=== PATIENT | female | born 1955 | race African-American/Black ===

== ENCOUNTER 2020-01-26 16:58 | Inpatient (IN) | payer BC, OTHER ==
[2020-01-26] MEDS ORDERED: NA CHLORIDE 0.9% 3,000 ML ONE (17:42)
[2020-01-26 17:56] LABS: Absolute Lymphocytes (CBC) 1.2 K/uL (0.7-4.9); Basophils % 0.3 % (0-1.3); Hematocrit 41.2 % (36.0-45.0); MPV 10.2 fL (7.6-11.3); RBC Red Blood Cell Count 4.45 M/uL (3.86-4.86)
--- NOTE | 2020-01-26 17:56 | RAD REPORT ---
EXAM DESCRIPTION: RAD - Chest Single View - 01/26/2020 5:51 pm CLINICAL HISTORY: MD discretion Chest pain. COMPARISON: No comparisons FINDINGS: Portable technique limits examination quality. The lungs are grossly clear. The heart is normal in size. No displaced fractures. IMPRESSION: No acute intrathoracic process suspected.
[2020-01-26 17:57] LABS: Protime INR 1.38
[2020-01-26] MEDS ORDERED: ONDANSETRON 4 MG/2 ML VIAL ONE (18:07)
[2020-01-26] MEDS ORDERED: FAMOTIDINE 20 MG/2 ML VIAL IV ONE (18:08)
[2020-01-26 18:11] LABS: ALT/SGPT 21 U/L (12-78); AST/SGOT 17 U/L (15-37); Alkaline Phosphatase 57 U/L (45-117); Amylase Level 15 U/L (25-115); BUN Blood Urea Nitrogen 17 mg/dL (7-18); Bicarbonate 31 mmol/L (21-32); Bilirubin Direct 0.4 mg/dL (0-0.2); Bilirubin Total 0.8 mg/dL (0.2-1.0); CKMB Creatine Kinase MB < 1.0 ng/mL (0.3-3.6); Creatine Phosphokinase 42 U/L (26-192); Glucose Level 138 mg/dL (74-106); Lipase 37 U/L (73-393); Potassium 3.4 mmol/L (3.5-5.1); Protein, Total 8.7 g/dL (6.4-8.2); Sodium Level 136 mmol/L (136-145); Troponin (Emerg Dept Use Only) < 0.02 ng/mL (0.0-0.045)
--- NOTE | 2020-01-26 18:21 | RAD REPORT ---
EXAM DESCRIPTION: US - Abdomen Exam Limited - 01/26/2020 6:14 pm CLINICAL HISTORY: epigastric/RUQ abdomen pain COMPARISON: No comparisons FINDINGS: The gallbladder demonstrates distention. Small echogenic foci in the gallbladder neck seen questionable for small stones. Gallbladder wall is mildly thickened and trace pericholecystic fluid is seen. The common bile duct is normal measuring 4 mm. The liver demonstrates no findings of intrahepatic biliary dilatation. IMPRESSION: Gallbladder distension with trace pericholecystic fluid and mild gallbladder wall thicke odalis. It is difficult to discern with confidence the presence gallstones although questionable tiny c alculi may be present in the region of the gallbladder neck. Suggest correlation clinically for the possibility of early acute cholecystitis.
--- NOTE | 2020-01-26 18:37 | RAD REPORT ---
EXAM DESCRIPTION: CT - Chest Abdomen Pelvis W Cont - 01/26/2020 6:27 pm CLINICAL HISTORY: Chest and abdomen pain. nausea/vomiting/diarrhea;Fever COMPARISON: No comparisons TECHNIQUE: Approximately 100 mL nonionic IV contrast was administered to the patient. All CT scans are performed using dose optimization technique as appropriate and may include automated exposure control or mA/KV adjustment according to patient size. FINDINGS: The lungs are clear.No pleural or pericardial effusion.No intrathoracic adenopathy. Diffuse fatty liver is present. The pancreas, adrenal glands and kidneys are within normal limits. Be nign right renal cysts are present. There is significant inflammation in the right upper quadrant surrounding the gallbladder in the antr um of the stomach/ duodenal bulb. No bowel obstruction, free air, free fluid or abscess. Normal appendix. Sigmoid diverticulosis coli w ithout diverticulitis. No pathologic lymphadenopathy in the abdomen or pelvis. Lumbosacral degenerative changes are present. IMPRESSION: Significant inflammatory changes are present in the right upper quadrant surrounding a m ildly distended gallbladder.Primary consideration would be acute cholecystitis. Inflammatory changes are also seen in the gastric antrum and duodenal bulb, favored to be secondary to gallbladder inflamm ation, however it is difficult to exclude primary inflammatory process in the gastric antrum resultin g in secondary inflammation of the gallbladder. Upper endoscopy may be of value for further assessmen t.
[2020-01-26] MEDS ORDERED: PIPER/TAZO/NS 3.375gm 3.375 GM/100 ML BAG ONE (18:50)
[2020-01-26 19:28] LABS: Blood Morphology Comment NOT SEEN (NOT SEEN); Platelet Estimate ADEQ
--- NOTE | 2020-01-26 19:35 | ER ---
Nurse's Notes [facility] Name: Sun Stanford Age: 64 yrs Sex: Female : 1955 Arrival Date: 01/26/2020 Time: 16:59 Bed 18 Private MD: Diagnosis: Other sepsis;Diarrhea, unspecified;Nausea and vomiting;Upper abdominal pain, unspecified Presentation: 01/25 17:13 Chief complaint: Patient states: abd pain, back pain, and N/V/D that began 4-5 days aa5 ago. Coronavirus screen: The patient has NOT traveled to a country currently being monitored by the [facility] within the last 14 days. Ebola Screen: Patient negative for fever greater than or equal to 101.5 degrees Fahrenheit, and additional compatible Ebola Virus Disease symptoms. Initial Sepsis Screen: Does the patient meet any 2 criteria? HR > 90 bpm. Does the patient have a suspected source of infection? Yes: Other: vomiting/diarrhea. Risk Assessment: Do you want to hurt yourself or someone else? Patient reports no desire to harm self or others. 17:13 Method Of Arrival: Wheelchair aa5 17:13 Acuity: CORINA 2 aa5 19:00 Onset of symptoms was January 21, 2020. rr5 Historical: - Allergies: 17:17 No Known Allergies; aa5 - PMHx: 17:17 None; aa5 - PSHx: 17:17 ; aa5 - Immunization history:: Flu vaccine is not up to date. - Social history:: Smoking status: Patient denies any tobacco usage or history of. Screenin:30 Abuse screen: Denies threats or abuse. Denies injuries from another. Nutritional aj1 screening: No deficits noted. Tuberculosis screening: No symptoms or risk factors identified. 19:15 Fall Risk IV access (20 points). Total Ayala Fall Scale indicates No Risk (0-24 pts). rr5 Assessment: 17:30 General: Appears in no apparent distress. comfortable, Behavior is calm, cooperative, aj1 appropriate for age. Pain: Denies pain. Neuro: Level of Consciousness is awake, alert, obeys commands, Oriented to person, place, time, situation. Cardiovascular: Patient's skin is warm and dry. Respiratory: Airway is patent Respiratory effort is even, unlabored, Respiratory pattern is regular, symmetrical. GI: Abdomen is non-distended, Bowel sounds present X 4 quads. Abd is soft and non tender X 4 quads. Reports diarrhea, nausea, vomiting. : No signs and/or symptoms were reported regarding the genitourinary system. EENT: No signs and/or symptoms were reported regarding the EENT system. Derm: No signs and/or symptoms reported regarding the dermatologic system. Skin is pink, warm \T\ dry. normal. 17:30 Musculoskeletal: No signs and/or symptoms reported regarding the musculoskeletal aj1 system. Circulation, motion, and sensation intact. 18:27 Reassessment: Notified provider that patient does not have antibiotics ordered at this aj1 time, no order received. 19:04 Reassessment: Patient appears in no apparent distress at this time. Patient and/or aj1 family updated on plan of care and expected duration. Pain level reassessed. Patient is alert, oriented x 3, equal unlabored respirations, skin warm/dry/pink. Patient states that she is feeling better since we started giving her IV fluids. 19:15 General: Appears in no apparent distress. comfortable, Behavior is calm, cooperative, rr5 appropriate for age. Pain: Complains of pain in right upper quadrant and left upper quadrant Pain does not radiate. Pain currently is 6 out of 10 on a pain scale. Quality of pain is described as aching, Pain began gradually, Is intermittent. Neuro: Level of Consciousness is awake, alert, obeys commands, Oriented to person, place, time, situation. Cardiovascular: Capillary refill < 3 seconds Patient's skin is warm and dry. Respiratory: Airway is patent Respiratory effort is even, unlabored, Respiratory pattern is regular, symmetrical. GI: Abdomen is round non-distended, Reports diarrhea, nausea, vomiting. : No signs and/or symptoms were reported regarding the genitourinary system. EENT: No signs and/or symptoms were reported regarding the EENT system. Derm: Skin is intact, is healthy with good turgor, Skin is pink, warm \T\ dry. Musculoskeletal: Circulation, motion, and sensation intact. Capillary refill < 3 seconds. 20:15 Reassessment: Patient appears in no apparent distress at this time. Patient is alert, rr5 oriented x 3, equal unlabored respirations, skin warm/dry/pink. hospitalist at bedside. patient informed for the admission. Patient states symptoms have improved. 21:30 Reassessment: Patient appears in no apparent distress at this time. No changes from rr5 previously documented assessment. Patient and/or family updated on plan of care and expected duration. Pain level reassessed. Patient is alert, oriented x 3, equal unlabored respirations, skin warm/dry/pink. awaiting for room assignment. 21:50 Reassessment: Patient appears in no apparent distress at this time. complaints of sever rr5 abdominal pain pain score 10/10. ED provider aware with order made and carried out. 22:32 Reassessment: Patient appears in no apparent distress at this time. Patient is alert, rr5 oriented x 3, equal unlabored respirations, skin warm/dry/pink. Patient states symptoms have improved. Pain: Pain currently is 7 out of 10 on a pain scale. Vital Signs: 17:13 BP 95 / 50; Pulse 144; Resp 16 S; Temp 98.4(O); Pulse Ox 98% on R/A; Weight 112.04 kg aa5 (R); Height 5 ft. 3 in. (160.02 cm) (R); Pain 7/10; 17:56 BP 109 / 57; Pulse 135; Resp 32; Pulse Ox 97% on R/A; aj1 18:14 BP 117 / 77; Pulse 127; Resp 32; Pulse Ox 98% on R/A; aj1 19:03 BP 130 / 68; Pulse 117; Resp 24; Pulse Ox 96% on R/A; aj1 20:25 BP 122 / 64; Pulse 108; Resp 22; Temp 98.3; Pulse Ox 99% ; rr5 21:50 BP 128 / 57; Pulse 110; Resp 23; Temp 98.3; Pulse Ox 97% ; Pain 10/10; rr5 22:33 BP 110 / 75; Pulse 111; Resp 22; Pulse Ox 99% ; Pain 7/10; rr5 17:13 Body Mass Index 43.75 (112.04 kg, 160.02 cm) aa5 ED Course: 16:59 Patient arrived in ED. ag5 17:13 Arm band placed on. aa5 17:16 Triage completed. aa5 17:23 Sidney Ramirez [facility]. cp 17:23 Sidney Duenas MD is Attending Physician. cp 17:25 Jennifer Boyd, RN is Primary Nurse. aj1 17:30 Patient has correct armband on for positive identification. Bed in low position. Call aj1 light in reach. Side rails up X 1. 17:30 No provider procedures requiring assistance completed. aj1 17:35 Initial lab(s) drawn, by me, sent to lab. First set of blood cultures drawn by me. aj1 Inserted saline lock: 20 gauge in right antecubital area, using aseptic technique. Blood collected. 17:37 Second set of blood cultures drawn by lab staff. aj1 19:33 Ahmet Locke MD is Hospitalizing Provider. cp 22:01 Patient admitted, IV remains in place. intact, No redness/swelling at site. rr5 Administered Medications: 17:46 Drug: NS 0.9% (30 ml/kg) 30 ml/kg Route: IV; Rate: bolus; Site: right antecubital; aj1 22:00 Follow up: Response: No adverse reaction; IV Status: Completed infusion; IV Intake: rr5 3360ml 18:14 Drug: Zofran (Ondansetron) 4 mg Route: IVP; Site: right antecubital; aj1 19:15 Follow up: Response: No adverse reaction rr5 18:14 Drug: Pepcid 20 mg Route: IVP; Site: right antecubital; aj1 20:20 Follow up: Response: No adverse reaction rr5 19:18 Drug: Zosyn 3.375 grams Route: IVPB; Infused Over: 60 mins; Site: right antecubital; aj1 20:20 Follow up: Response: No adverse reaction; IV Status: Completed infusion; IV Intake: rr5 100ml 21:50 Drug: fentaNYL (PF) 25 mcg {Note: rass 0.} Route: IVP; Site: right antecubital; rr5 22:31 Follow up: Response: No adverse reaction; Pain is decreased; RASS: Alert and Calm (0) rr5 22:31 Not Given (Other Intervention Used): fentaNYL (PF) 25 mcg IVP once; RASS on ADMIN: rr5 Combtv4, Very Agttd3, Agttd2, Rstlss1, AlertClm0, Drwsy-1, Lt Sdtn-2, Mod Sdtn-3, Dp Sdtn-4, UnArsble-5 Point of Care Testing: Blood Glucose: 17:37 Blood Glucose: 138 mg/dL; iw Ranges: Intake: 20:20 IV: 100ml; Total: 100ml. rr5 22:00 IV: 3360ml; Total: 3460ml. rr5 Outcome: 19:34 Decision to Hospitalize by Provider. cp 22:31 Admitted to Tele accompanied by tech, via stretcher, room 419, with chart, Report rr5 called to [place] 22:31 Condition: stable 22:31 Instructed on the need for admit. 22:33 Patient left the ED. rr5 Signatures: Jennifer Boyd, RN RN aj1 Amada Lechuga RN RN iw Harleen Hopkins RN RN aa5 Sidney Ramirez PA PA cp Roque, Raymond, RN RN rr5 Jose Bustamante ag5
--- NOTE | 2020-01-26 19:36 | EDPHYS ---
Physician Documentation [facility] Name: Sun Stanford Age: 64 yrs Sex: Female : 1955 Arrival Date: 01/26/2020 Time: 16:59 Bed 18 Private MD: ED Physician Sidney Duenas HPI: 01/25 17:35 This 64 yrs old Black Female presents to ER via Wheelchair with complaints of cp Nausea/Vomiting/Diarrhea. 17:35 The patient presents to the emergency department with nausea, that is moderate, cp vomiting, that is continuous, diarrhea, that is continuous. Onset: The symptoms/episode began/occurred 4 day(s) ago. Possible causes: unknown. Associated signs and symptoms: Pertinent positives: abdominal pain, fever, Pertinent negatives: constipation, dysuria, GI bleeding. Severity of symptoms: in the emergency department the symptoms are unchanged despite home interventions. Historical: - Allergies: 17:17 No Known Allergies; aa5 - PMHx: 17:17 None; aa5 - PSHx: 17:17 ; aa5 - Immunization history:: Flu vaccine is not up to date. - Social history:: Smoking status: Patient denies any tobacco usage or history of. ROS: 17:40 Constitutional: Positive for poor PO intake, Negative for body aches, fever. cp 17:40 Eyes: Negative for injury, pain, redness, and discharge. cp 17:40 ENT: Negative for drainage from ear(s), ear pain, sore throat, difficulty swallowing, difficulty handling secretions. 17:40 Cardiovascular: Negative for chest pain, palpitations. 17:40 Respiratory: Positive for cough, Negative for shortness of breath, wheezing. 17:40 Abdomen/GI: Positive for abdominal pain, nausea, vomiting, and diarrhea, anorexia, Negative for constipation, black/tarry stool, rectal bleeding. 17:40 Back: Positive for radiated pain, of the mid back area. 17:40 : Negative for urinary symptoms. 17:40 Skin: Negative for rash. 17:40 Neuro: Negative for altered mental status, dizziness, headache, syncope, weakness. 17:40 All other systems are negative. Exam: 17:35 ECG was reviewed by the Attending Physician. cp 17:45 Constitutional: The patient appears in no acute distress, alert, awake, cp non-diaphoretic, well developed, well nourished, obviously ill, uncomfortable. 17:45 Head/Face: Normocephalic, atraumatic. cp 17:45 Eyes: Periorbital structures: appear normal, Pupils: equal, round, and reactive to light and accomodation, Extraocular movements: intact throughout, Conjunctiva: normal, no exudate, no injection, Sclera: no appreciated abnormality, Lids and lashes: appear normal, bilaterally. 17:45 ENT: External ear(s): are unremarkable, Ear canal(s): are normal, clear, TM's: bulging, is not appreciated, bilaterally, dullness, bilaterally, erythema, is not appreciated, bilaterally, Nose: is normal, Mouth: Lips: moist, Oral mucosa: pink and intact, moist, Posterior pharynx: is normal, airway is patent, no erythema, no exudate. 17:45 Neck: ROM/movement: is normal, is supple, without pain, no range of motions limitations, no meningismus, no nuchal rigidity. 17:45 Chest/axilla: Inspection: normal, Palpation: is normal, no crepitus, no tenderness. 17:45 Cardiovascular: Rate: tachycardic, Rhythm: regular, Edema: is not appreciated, JVD: is not appreciated. 17:45 Respiratory: the patient does not display signs of respiratory distress, Respirations: normal, no use of accessory muscles, no retractions, labored breathing, is not present, Breath sounds: are clear throughout, no decreased breath sounds, no stridor, no wheezing. 17:45 Abdomen/GI: Inspection: abdomen appears normal, Bowel sounds: active, all quadrants, Palpation: soft, in all quadrants, moderate abdominal tenderness, in the epigastric area and right upper quadrant, rebound tenderness, is not appreciated, voluntary guarding, is elicited in the epigastric area and right upper quadrant. 17:45 Back: pain, that is moderate, of the mid back area, ROM is painful. 17:45 Skin: no rash present. 17:45 Neuro: Orientation: to person, place \T\ time. Mentation: is normal, Cerebellar function: is grossly normal, Motor: moves all fours, general weakness without focal deficits, Sensation: is normal. Vital Signs: 17:13 BP 95 / 50; Pulse 144; Resp 16 S; Temp 98.4(O); Pulse Ox 98% on R/A; Weight 112.04 kg aa5 (R); Height 5 ft. 3 in. (160.02 cm) (R); Pain 7/10; 17:56 BP 109 / 57; Pulse 135; Resp 32; Pulse Ox 97% on R/A; aj1 18:14 BP 117 / 77; Pulse 127; Resp 32; Pulse Ox 98% on R/A; aj1 19:03 BP 130 / 68; Pulse 117; Resp 24; Pulse Ox 96% on R/A; aj1 20:25 BP 122 / 64; Pulse 108; Resp 22; Temp 98.3; Pulse Ox 99% ; rr5 21:50 BP 128 / 57; Pulse 110; Resp 23; Temp 98.3; Pulse Ox 97% ; Pain 10/10; rr5 22:33 BP 110 / 75; Pulse 111; Resp 22; Pulse Ox 99% ; Pain 7/10; rr5 17:13 Body Mass Index 43.75 (112.04 kg, 160.02 cm) aa5 MDM: 17:23 Patient medically screened. deepthi 18:00 Differential diagnosis: gastritis, cholecystitis, pancreatitis, appendicitis, cp diverticulitis, viral gastroenteritis, gastroenteritis. 19:20 Data reviewed: vital signs, nurses notes, lab test result(s), EKG, radiologic studies, cp CT scan, plain films, I have discussed the patient's presentation/case with the attending Emergency Department Physician; and as a result, I will admit patient. 19:20 Counseling: I had a detailed discussion with the patient and/or guardian regarding: the historical points, exam findings, and any diagnostic results supporting the discharge/admit diagnosis, lab results, radiology results, the need for further work-up and treatment in the hospital. 19:30 Physician consultation: Vickey Umana MD was contacted at 19:20, regarding consult, patient's condition, would like admission per Dr. Ahmet Locke MD would like further tests performed, HIDA scan. 19:35 Physician consultation: Ahmet Locke MD was called at 19:32, was contacted at 19:32, regarding admission, to the telemetry unit. patient's condition. 21:45 Post IV fluid administration reassessment for Sepsis: Focused Assessment performed: cp January 26, 2020 at 21:51 Heart: Regular rate/rhythm noted. Tachycardia noted. Lungs: Noted to be clear bilaterally. Current vital signs reviewed: Yes. 01/25 17:32 Order name: Amylase, Serum [facility] 01/25 17:32 Order name: Basic Metabolic Panel [facility] 01/25 17:32 Order name: Blood Culture Adult (2) [facility] 01/25 17:32 Order name: CBC with Diff 01/25 17:32 Order name: Ckmb 01/25 17:32 Order name: CPK 01/25 17:32 Order name: Lactate 01/25 17:32 Order name: LFT's 01/25 17:32 Order name: Lipase 01/25 17:32 Order name: Procalcitonin [facility] 01/25 17:32 Order name: Protime (+inr) 01/25 17:32 Order name: Ptt, Activated 01/25 17:32 Order name: Troponin (emerg Dept Use Only) [facility] 01/25 17:32 Order name: Urine Microscopic Only [facility] 01/25 17:49 Order name: Glucose, Ancillary Testing; Complete Time: 17:49 EDMS 01/25 17:49 Order name: Occult Blood cp 01/25 17:49 Order name: Stool Culture 01/25 17:49 Order name: CDIFF cp 01/25 18:05 Order name: CBC with Automated Diff; Complete Time: 19:31 EDMS 01/25 18:23 Interpretation: Normal except: WBC 30.6; RDW 16.1; GRISELDA% 87.3; LYM% 4.0; MNA 2.6; NEUT A cp 26.7. 01/25 18:05 Order name: Protime (+INR); Complete Time: 18:05 EDMS 01/25 18:24 Interpretation: Abnormal: PT 16.1. cp 01/25 18:05 Order name: PTT, Activated Partial Thromb; Complete Time: 18:05 EDMS 01/25 18:11 Order name: Basic Metabolic Panel; Complete Time: 18:22 EDMS 01/25 18:22 Interpretation: Normal except: K 3.4; CL 97; GLUC 138; GFR 50. cp 01/25 18:12 Order name: Liver (Hepatic) Function; Complete Time: 18:22 EDMS 01/25 18:22 Interpretation: Normal except: BILID 0.4; TP 8.7; ALB 3.0; GLOB 5.7; A/G 0.5. cp 01/25 18:12 Order name: Creatine Phosphokinase; Complete Time: 18:22 EDMS 01/25 18:12 Order name: CKMB Creatine Kinase MB; Complete Time: 18:22 EDMS 01/25 18:12 Order name: Troponin (Emerg Dept Use Only); Complete Time: 18:22 EDVA 01/25 18:12 Order name: Amylase Level; Complete Time: 18:22 EDMS 01/25 18:22 Interpretation: Reviewed. cp 01/25 18:12 Order name: Lipase; Complete Time: 18:22 EDMS 01/25 18:23 Interpretation: Reviewed. cp 01/25 18:12 Order name: Lactate; Complete Time: 18:22 EDMS 01/25 18:23 Interpretation: Abnormal: LAC 2.3. cp 01/25 18:34 Order name: Procalcitonin; Complete Time: 18:37 [facility] 01/25 18:37 Interpretation: Abnormal: Procalcitonin 3.32. 01/25 17:32 Order name: Chest Single View XRAY [facility] 01/25 17:32 Order name: Accucheck; Complete Time: 17:37 [facility] 01/25 17:32 Order name: Cardiac monitoring; Complete Time: 17:33 [facility] 01/25 17:32 Order name: EKG - Nurse/Tech; Complete Time: 17:33 [facility] 01/25 17:32 Order name: IV Saline Lock - Large Bore; Complete Time: 17:37 [facility] 01/25 17:32 Order name: Labs collected and sent; Complete Time: 17:37 [facility] 01/25 17:32 Order name: O2 Per Protocol; Complete Time: 17:37 [facility] 01/25 17:32 Order name: O2 Sat Monitoring; Complete Time: 17:37 [facility] 01/25 17:32 Order name: Urine Dipstick-Ancillary (obtain specimen); Complete Time: 21:23 [facility] 01/25 17:49 Order name: US Abdomen Limited cp 01/25 18:05 Order name: RAD; Complete Time: 18:05 [facility] 01/25 18:06 Order name: CT Chest, Abdomen, Pelvis - W/Contrast 01/25 18:30 Order name: US; Complete Time: 18:37 EDMS 01/25 18:44 Order name: CT; Complete Time: 18:54 EDMS 01/25 18:56 Interpretation: Report reviewed. cp 01/25 19:20 Order name: Ova And Parasites cp 01/25 19:29 Order name: Manual Differential; Complete Time: 19:31 EDMS 01/25 19:33 Order name: Urine Dipstick--Ancillary (enter results) ar5 01/25 19:54 Order name: Urine Microscopic Only; Complete Time: 19:57 EDMS 01/25 19:57 Interpretation: Normal except: UBACT >50; SQEPI 5-10. cp 01/25 19:56 Order name: Urine Dipstick-Ancillary; Complete Time: 19:57 EDMS 01/25 20:38 Order name: Lactate Sepsis 2 HR Follow-up EDMS 01/25 21:53 Order name: Thyroid Stimulating Hormone EDMS EC:35 Rate is 142 beats/min. Rhythm is regular. AR interval is normal. QRS interval is cp normal. QT interval is normal. T waves are Inverted in lead III. Interpreted by me. Reviewed by me. Administered Medications: 17:46 Drug: NS 0.9% (30 ml/kg) 30 ml/kg Route: IV; Rate: bolus; Site: right antecubital; aj1 22:00 Follow up: Response: No adverse reaction; IV Status: Completed infusion; IV Intake: rr5 3360ml 18:14 Drug: Zofran (Ondansetron) 4 mg Route: IVP; Site: right antecubital; aj1 19:15 Follow up: Response: No adverse reaction rr5 18:14 Drug: Pepcid 20 mg Route: IVP; Site: right antecubital; aj1 20:20 Follow up: Response: No adverse reaction rr5 19:18 Drug: Zosyn 3.375 grams Route: IVPB; Infused Over: 60 mins; Site: right antecubital; aj1 20:20 Follow up: Response: No adverse reaction; IV Status: Completed infusion; IV Intake: rr5 100ml 21:50 Drug: fentaNYL (PF) 25 mcg {Note: rass 0.} Route: IVP; Site: right antecubital; rr5 22:31 Follow up: Response: No adverse reaction; Pain is decreased; RASS: Alert and Calm (0) rr5 22:31 Not Given (Other Intervention Used): fentaNYL (PF) 25 mcg IVP once; RASS on ADMIN: rr5 Combtv4, Very Agttd3, Agttd2, Rstlss1, AlertClm0, Drwsy-1, Lt Sdtn-2, Mod Sdtn-3, Dp Sdtn-4, UnArsble-5 Point of Care Testing: Blood Glucose: 17:37 Blood Glucose: 138 mg/dL; iw Ranges: Critical Glucose Levels:Adult <50 mg/dl or >400 mg/dl <40 mg/dl or >180 mg/dl Disposition: 01/26/20 19:34 Hospitalization ordered by Ahmet Locke for Inpatient Admission. Preliminary diagnosis are Other sepsis, Diarrhea, unspecified, Nausea and vomiting, Upper abdominal pain, unspecified. - Bed requested for Telemetry/MedSurg (Inpatient). - Status is Inpatient Admission. rr5 - Condition is Stable. - Problem is new. - Symptoms have improved. Addendum: 01/29/2020 07:09 Co-signature as Attending Physician, Sidney Duenas MD I agree with the assessment and c ruiz plan of care. Signatures: Dispatcher [employer] EDJennifer Aparicio, JEREMIAH RN aj1 Sidney Duenas MD MD cha Calderon, Audri, RN RN aa5 Sidney Ramirez PA PA Sherry Hugo, RN RN cg Nickolas Aleman, RN RN rr5 Corrections: (The following items were deleted from the chart) 01/25 18:23 18:23 Normal except: WBC 30.6; RDW 16.1; GRISELDA% 87.3; LYM% 4.0. cp cp 18:23 18:23 Normal except: WBC 30.6; RDW 16.1; GRISELDA% 87.3; LYM% 4.0; MNA 2.6. cp cp 21:42 19:34 Hospitalization Ordered by Ahmet Locke MD for Inpatient Admission. Preliminary cg diagnosis is Other sepsis; Diarrhea, unspecified; Nausea and vomiting; Upper abdominal pain, unspecified. Bed requested for Telemetry/MedSurg (Inpatient). Status is Inpatient Admission. Condition is Stable. Problem is new. Symptoms have improved. cp 22:33 21:42 01/26/2020 19:34 Hospitalization Ordered by Ahmet Locke MD for Inpatient rr5 Admission. Preliminary diagnosis is Other sepsis; Diarrhea, unspecified; Nausea and vomiting; Upper abdominal pain, unspecified. Bed requested for Telemetry/MedSurg (Inpatient). Status is Inpatient Admission. Condition is Stable. Problem is new. Symptoms have improved. cg
[2020-01-26 19:53] LABS: Urine Bacteria >50 /HPF (<20); Urine Culture Reflex Order REFLEXED; Urine RBC <5 /HPF (NONE SEEN)
[2020-01-26 19:55] LABS: Urine Blood 2+ (NEG); Urine Glucose NEGATIVE (NEG); Urine Protein 3+ (NEG); Urine pH 5.5 (5.0-7.0)
[2020-01-26] MEDS ORDERED: MORPHINE 2 MG/ML SYR IV PRN (21:17)
[2020-01-26] MEDS ORDERED: ONDANSETRON 4 MG/2 ML VIAL IV PRN (21:17)
[2020-01-26] MEDS ORDERED: HYDRALAZINE HCL 20 MG/ML VIAL IV PRN (21:28)
[2020-01-26] MEDS ORDERED: FENTANYL CITR 100 MCG/2 ML ONE (21:47)
[2020-01-26] MEDS: D5.45NS W/KCL 20MEQ 1,000 ML IV SCH (23:18)
[2020-01-26] MEDS ORDERED: PIPERACIL/TAZO 3.375 GM VIAL IV ONE (23:50)
[2020-01-26] MEDS ORDERED: NA CHLORIDE 0.9% 100 ML ONE (23:59)
[2020-01-27] MEDS: METRONIDAZOLE 500mg IVPB 500 MG/100 ML BAG IV SCH ×3 (00:12→17:05)
[2020-01-27] MEDS: HEPARIN 5000 UNIT/ML 1 ML VIAL SQ SCH ×2 (00:13→09:00)
--- NOTE | 2020-01-27 00:59 | HP ---
Date of Admission: 01/26/2020 Presenting Complaint: Nausea, vomiting, diarrhea. History Of Present Illness: Ms. Sun Stanford is a 64-year-old with past medical history of hypothyr oidism, not adherent with her Synthroid, but presented because of 3-day history of nausea, vomiting w ith diarrhea, right upper abdominal quadrant pain, colicky and crampy. Diarrhea is nonbloody. On ar rival in the ED, she had an ultrasound of the upper quadrant done with findings of presumed gallbladd er distention and pericholecystic fluid. She was also noted to be mildly hypotensive and tachycardic with heart rate up to the 140s. Symptoms improved with IV fluid. She feels much better. Nausea se ems to have resolved. She feels hungry and would like to eat something. She has been admitted for f urther workup of presumed cholecystitis. She admit to a history of bronchitis 2 weeks ago, but she w as not treated with any antibiotics. Past Medical History: Hypothyroidism. Past Surgical History: . Allergies: NO KNOWN DRUG ALLERGIES. Home Medications: She takes Synthroid 25 mcg daily. Social History: She resides in the community with the family. No history of alcohol, tobacco, or il licit drug use. Family History: Noncontributory. Review of Systems: All systems reviewed x14 were negative except as mentioned above. Physical Examination: Vital Signs: Blood pressure on presentation was 95/50 with pulse of 144. Current vitals now blood p ressure of 130/68, pulse of 117, respiratory rate of 24, O2 saturation 96 on room air, is post 2 L of fluid with normal saline. General: Obese, middle-age female. HEENT: Head is atraumatic, normocephalic. Pupils equal, reactive to light. Extraocular motor movem ent intact. Neck: No JVD. No carotid bruit. Respiratory: Good air entry. No crepitation. Cardiovascular: S1, S2. Rate and rhythm regular. GI: Obese abdomen. Mild tenderness over the right upper quadrant. Bowel sounds positive. No supra pubic fullness or tenderness. Extremities: No pedal edema. No calf tenderness. Neuro: Patient is alert and oriented. Cranial nerves 2 through 12 grossly intact. Laboratory Data: EKG shows sinus tachy with mild left atrial dilatation, heart rate of 142 beats per minute. No ST-segment changes. CT of the abdomen and pelvis shows significant inflammatory changes in the right upper quadrant surrounding a mildly distended gallbladder, possible acute cholecystitis . Abdominal ultrasound consistent with similar findings. Chest x-ray shows no acute infiltrates. L ungs are grossly clear. Laboratory Data: Rest of labs, WBC 30.6 with 87% neutrophils, 3% bands, hemoglobin 13.5, platelet 33 8. INR 1.38, potassium 3.4, creatinine 1.3, glucose 138, AST, alkaline phosphatase normal. TSH pend ing. Procalcitonin 3.3, lipase of 37, amylase 15. Urinalysis shows greater than 50 bacteria, but ne gative leukocyte esterase. Urine total protein was 3+. C diff pending. Impression: 1.Acute cholecystitis. 2.Hypothyroidism. Plan: Admit to observation. We will start patient on empirical Zosyn as well as Flagyl. We will co nsult Surgery. Plan for HIDA scan in a.m. as per Surgery. I will obtain TSH, restart patient's Synt hroid. Family to bring full home med list. We will do subcutaneous heparin for DVT prophylaxis as p ossible, plan for surgery. CBC and BMP are monitored daily. We will continue to follow. Advanced d samantha, patient is a full code. We will replete potassium. Follow magnesium level. EO/MODL Voice ID: [id number]
[2020-01-27] MEDS ORDERED: NA CHLORIDE 0.9% 100 ML ONE (03:02)
[2020-01-27 05:16] LABS: Absolute Lymphocytes (CBC) 0.8 K/uL (0.7-4.9); Basophils % 0.2 % (0-1.3); Hematocrit 35.1 % (36.0-45.0); Lymphocytes % 4.2 % (15.3-44.8); MPV 10.3 fL (7.6-11.3); RBC Red Blood Cell Count 3.72 M/uL (3.86-4.86)
[2020-01-27] MEDS: PIPER/TAZO/NS 3.375gm 3.375 GM/100 ML BAG IVPB SCH ×4 (05:33→19:10)
[2020-01-27] MEDS: LEVOTHYROXINE SOD 0.025 MG TAB PO SCH (05:33)
[2020-01-27 05:37] LABS: Albumin 2.3 g/dL (3.4-5.0); Bilirubin Total 0.7 mg/dL (0.2-1.0); Potassium 3.4 mmol/L (3.5-5.1); Protein, Total 6.8 g/dL (6.4-8.2)
[2020-01-27] MEDS: FAMOTIDINE 20 MG TAB PO SCH ×2 (09:00→20:41)
--- NOTE | 2020-01-27 09:21 | EKG ---
Test Date: 2020-01-26 Test Time: 17:24:58 Filbert Grower: MADONNA MEASUREMENT RESULTS: Intervals: Rate: 142 SC: 134 QRSD: 72 QT: 272 QTc: 418 Timbo: P: 49 SC: 134 QRS: 72 T: 30 INTERPRETIVE STATEMENTS: Sinus tachycardia Possible Left atrial enlargement Borderline ECG No previous ECG available for comparison Electronically Signed On 01-27-20 09:20:24 HOG GRADER by Bradley Albrecht
--- NOTE | 2020-01-27 09:58 | RAD REPORT ---
EXAM DESCRIPTION: NM - Hepatobiliary System Imagin - 01/27/2020 9:39 am CLINICAL HISTORY: Abdominal pain TECHNIQUE: The patient was administered 6.9 millicuries technetium Choletec and images of the abdome n obtained for 60 minutes. Additional images obtained up to 2 and 1/2 hours FINDINGS: Liver demonstrates prompt radiotracer uptake. No activity is seen within the gallbladder throughout examination Prompt activity seen within small bowel IMPRESSION: No activity within the gallbladder throughout the examination. In combination with the r ecent CT scan and ultrasound these findings are compatible with acute cholecystitis
[2020-01-27] MEDS ORDERED: Ringers Lactate 1,000 ML IV ONE ×2 (10:49→13:39)
[2020-01-27] MEDS ORDERED: SUCCINYLCHOLINE 20 MG/ML (10 ML) IV ONE (10:55)
[2020-01-27] MEDS ORDERED: FENTANYL CITR 100 MCG/2 ML ONE ×2 (11:01→11:35)
[2020-01-27] MEDS ORDERED: ROCURONIUM 50 MG/5 ML VIAL IV ONE ×2 (11:01→11:59)
[2020-01-27] MEDS ORDERED: propofoL 200 MG/20 ML VIAL IV ONE (11:01)
[2020-01-27] MEDS ORDERED: MIDAZOLAM HCL 2 MG/2 ML INJ ONE (11:01)
--- NOTE | 2020-01-27 11:36 | P.PN ---
Subjective Date of Service: 01/27/20 (Hospitalist) Chief Complaint: Status post cholecystectomy Patient admitted with 3 day history of nausea vomiting and was found to have acute cholecystitis I had the scan is positive gallbladder is acutely inflamed White count is significantly elevated on Zosyn patient seen status post cholecystectomy very alert responsive cooperative complaining of some discomfort sure gangrenous gallbladder and underwent an open cholecystectomy Review of Systems General: Weakness Gastrointestinal: Abdominal Pain Physical Examination - Vital Signs Temperature: 98.5 F Blood Pressure: 115/54 Pulse: 118 Respirations: 18 Pulse Ox (%): 95 - Physical Exam General: Alert, Oriented x3 Neck: Supple Respiratory: Clear to auscultation bilaterally Cardiovascular: No edema, Regular rate/rhythm - Studies Laboratory Data (last 24 hrs) 01/27/20 04:21: Sodium 140, Potassium 3.4 L, BUN 14, Creatinine 0.96, Glucose 139 H, Total Bilirubin 0.7, AST 12 L, ALT 15, Alkaline Phosphatase 50 01/27/20 04:21: WBC 19.3 H D, Hgb 11.4 L, Hct 35.1 L, Plt Count 274 01/26/20 17:35: PT 16.1 H, INR 1.38, APTT 28.1 01/26/20 17:35: WBC 30.6 H*, Hgb 13.5, Hct 41.2, Plt Count 338 01/26/20 17:35: Sodium 136, Potassium 3.4 L, BUN 17, Creatinine 1.30, Glucose 138 H, Total Bilirubin 0.8, AST 17, ALT 21, Alkaline Phosphatase 57, Amylase 15 L, Lipase 37 L Microbiology Data (last 24 hrs): 01/26/20 17:49 Stool Stool Occult Blood (AYLIN) - Final [employer] Assessment & Plan - Problems (Diagnosis) (1) Acute cholecystitis Current Visit: Yes Status: Acute Plan: Patient is 64 years of age admitted with acute cholecystitis status post cholecystectomy on antibiotics labs reviewed doing better postop start on LR check CBC was some blood loss during the procedure patient is on Zosyn and Flagyl was start Lovenox for DVT prophylaxis from tomorrow Plan to discharge in: 72 Hours
[2020-01-27] MEDS ORDERED: Phenylephrine HCl 10 MG/ML 1 ML VIAL ONE (12:05)
[2020-01-27] MEDS ORDERED: HETASTARCH/NACL (HESPAN) 500 ML IV ONE (12:22)
[2020-01-27] MEDS ORDERED: GLYCOPYRROLATE 0.2 MG/ML SYR ONE ×2 (12:37)
[2020-01-27] MEDS ORDERED: NEOSTIGMINE 1 MG/ML -5 ML ONE ×2 (12:37→12:42)
--- NOTE | 2020-01-27 12:44 | P.OP ---
Fittings Finisher: Valentina HUNTER Preoperative diagnosis: Acute Cholecystitis and Cholelithiasis Postoperative diagnosis: same with Gangrenous changes of the Gallbladder Primary procedure: Diag Lap, Open Cholecystectomy Anesthesia: General Estimated blood loss: 600cc Specimen: GB Findings: as above Complications: None Drain(s): Urinary catheter, DOLLY drain Transferred to: Recovery Room Condition: Fair
[2020-01-27] MEDS ORDERED: ONDANSETRON 4 MG/2 ML VIAL IV PRN (13:18)
--- NOTE | 2020-01-27 13:42 | PREOPCON ---
Date of Consultation: 01/27/2020 Reason For Consultation: Abdominal pain, nausea, vomiting, diarrhea. History Of Present Illness: Patient is a 64-year-old female who had nausea, vomiting, and diarrhea o n Wednesday and she had pain in epigastric area and in back, which resolved on Wednesday, but on ay she started having the symptoms back and yesterday she came to the emergency room and she was in s epsis, protocol was followed. She had a workup done and I was consulted. She states that she has ne louie had pain like this before. She feels better after being resuscitated in the hospital. The pain is still in the epigastric and right upper quadrant. The nausea and vomiting and diarrhea have impro daiana with parenteral management. She is awake and alert. No sore throat, runny nose, cough, headache s, or dizziness. No chest pain. No fever or chills. There is no blood in her diarrhea. Review of Systems: Otherwise unremarkable. Past Medical History: Hypothyroidism. Past Surgical History: . Allergies: NO ALLERGIES. Social History: She does not smoke or drink. Family History: Significant for hypertension. Physical Examination: Vital Signs: Currently heart rate of 113, it was in the 140s when she was admitted. Her blood press ure is 113/51. She is afebrile. General: She is awake, alert, and oriented x3. Head and Neck: Cranial nerves 2 through 12 are grossly within normal limits. No neck masses. No JV D. Throat clear. Neck is supple. No evidence of icterus. Chest: Clear. Heart: S1, S2. Abdomen: Soft, nondistended. Positive bowel sounds. Positive epigastric and right upper quadrant t enderness with minimal rebound. No rigidity or guarding. Extremities: Adequately perfused. Nontender. Neurologic: Nonfocal. Laboratory Data: White count on admission was 30.6, hemoglobin and hematocrit were 13.5 and 41.2, th ere was a left shift. This morning her white count is down to 19.3, hemoglobin and hematocrit are do wn to 11.4 and 35.1, indicating probable dehydration as well as infection. Her INR is 1.38. [employer] ry reviewed. Her LFTs are within normal limits. Lipase is within normal limits. Procalcitonin on a dmission was 3.32. Lactic acid was 2.3 on admission and then currently is 1.8. Imaging: Ultrasounds of the abdomen shows gallbladder distention with trace pericholecystic fluid an d mild gallbladder wall thickening, difficult to discern with confidence the presence of gallstones, although questionable tiny calculi may be present in the region of the gallbladder neck suggest corre lation clinically for the possibility of early acute cholecystitis. She had a chest x-ray, which was negative. She had a chest, abdomen, and pelvis CT scan and a HIDA s can. The HIDA scan showed no visualization of the gallbladder in 2-1/[address] showed significant inflammatory changes are present in the right upper quadrant surrounding the mildly distended gallbl adder. Primary consideration would be acute cholecystitis. Inflammatory changes are seen in the gas tric antrum and duodenal bulb favored to be secondary to gallbladder inflammation; however, it is dif ficult to exclude. Primary inflammatory process of the gastric antrum currently resulting in a secon gaviota inflammation of the gallbladder. Assessment: Acute cholecystitis and probable cholelithiasis and sepsis. Recommendations: Continue hydration, antibiotics. We are taken the patient to the operating room fo r laparoscopic cholecystectomy, possible open. Patient understands the risks, benefits, and alternatives and agrees to procedure. MELY/ESTRELLA Voice ID: [id number] Report ID: [id number]
[2020-01-27] MEDS: HYDROMORPHONE HCL 1 MG/ML INJ IV PRN ×3 (14:26→22:11)
[2020-01-27] MEDS: D5.45NS W/KCL 20MEQ 1,000 ML IV SCH (14:39)
[2020-01-27] MEDS ORDERED: Ringers Lactate 1,000 ML IV SCH (15:00)
[2020-01-27 16:23] LABS: Absolute Lymphocytes (CBC) 0.6 K/uL (0.7-4.9); Basophils % 0.1 % (0-1.3); Hematocrit 28.2 % (36.0-45.0); Lymphocytes % 3.4 % (15.3-44.8)
[2020-01-27] MEDS: Ringers Lactate 1,000 ML with POTASSIUM CL 40 MEQ IV SCH ×2 (17:00)
[2020-01-27] MEDS ORDERED: INFLUENZA VACCINE (for 3y+) 0.5 ML DOSE IMVAC ONE (19:00)
[2020-01-27] MEDS ORDERED: PNEUMOCOCCAL VACCINE 0.5 ML IMVAC ONE (19:00)
[2020-01-27] MEDS: HYDROCODONE/APAP 7.5/325 MG TAB PO PRN (19:15)
[2020-01-27] MEDS ORDERED: NA CHLORIDE 0.9% 500 ML IV PRN (19:36)
--- NOTE | 2020-01-27 20:58 | OP ---
Date of Procedure: 01/27/2020 Surgeon: Vickey Umana MD Teachers Aide: DALE Sue. Preoperative Diagnoses: Acute cholecystitis and cholelithiasis. Postoperative Diagnoses: Acute cholecystitis and cholelithiasis with gangrenous changes of the gallb ladder. Estimated Blood Loss: 600 cc. Specimen: Gallbladder. Finding: As above. Anesthesia: General. Drains: DOLLY #10 flat. Patient tolerated the procedure in stable condition, taken to Recovery in good general condition. Complications: None. Procedure In Detail: Patient was brought to the OR and placed in supine position, general anesthesia begun. Patient was prepped and draped in the usual sterile fashion. Marcaine 0.5% was infiltrated locally. A 15-blade was used to make a 1 cm supraumbilical midline incision. Subcutaneous tissue di vided. The fascia was identified and divided. #1 Vicryl stay suture was placed. Peritoneal cavity was entered with sharp and blunt dissection. Formal trocar placed into the peritoneal cavity under d irect vision. Then, incisions and pneumoperitoneum established and then 5 mm trocar was placed in th e epigastric region just to the right of midline. Laparoscopy revealed the gallbladder that was impo ssible to visualize because of the adhesions on the liver, omental adhesions. Some of the adhesions w ere taken down with ligature, however, still it was unsafe to proceed laparoscopically as I could not visualize the safety zone to address the gallbladder. Now, therefore I decided to convert to an ope n incision which was done via right subcostal region. Subcutaneous tissue divided. The fascia was i dentified and divided. Rectus abdominis muscle divided. Posterior sheath divided and peritoneal cav ity entered and the adhesions were is caked onto the gallbladder which was removed with sharp and aaron nt dissection. Gallbladder was very intrahepatic with gangrenous changes distended which was aspirat ed of pus and then retrograde dissection proceeded and there was quite a bit of oozing from the liver bed because of all the inflammation. The cystic duct, cystic artery identified and then divided bet ween clamps and tied off with 2-0 silk ties. Gallbladder sent to Pathology and then the liver bed ex amined carefully, consider amount of oozing was noted. Cautery was utilized, to control and slow it down and then adequate control was made. Sylvester and Surgicel were utilized in standard way. Dry lap was placed as pressure for several minutes prior to that and there was no evidence of any active ble eding noted at the end of the case. Minimal oozing was noted. This was controlled with the Surgicel and the Sylvester. The Ronny-Cooper drain, #10 flat placed after the entire wound was irrigated. Th e effluent was clear. No evidence of bleeding was noted and no bowel leakage was appreciated. Subse quently, the posterior sheath was closed with 0-chromic running sutures. Wound irrigated. Bleeding controlled with cautery. Then #2 nylon was used to close the fascia and subcutaneous wounds irrigate d. Bleeding controlled with cautery and then daniel used to close the skin. Stay sutures at the um bilicus tied to each other to reapproximate the fascial defect. Subcutaneous wound was irrigated. B leeding controlled with cautery. Staple was closed to close the skin. Sterile dressing applied. Pa tient was awakened and taken to Recovery in good general condition. MELY/MENDEZL Voice ID: [id number] Report ID: [id number]
[2020-01-28] MEDS: PIPER/TAZO/NS 3.375gm 3.375 GM/100 ML BAG IVPB SCH ×5 (00:04→23:08)
[2020-01-28] MEDS: METRONIDAZOLE 500mg IVPB 500 MG/100 ML BAG IV SCH ×3 (00:04→17:30)
[2020-01-28] MEDS: Ringers Lactate 1,000 ML with POTASSIUM CL 40 MEQ IV SCH ×8 (03:12→23:07)
[2020-01-28] MEDS: HYDROMORPHONE HCL 1 MG/ML INJ IV PRN ×2 (03:56→19:55)
[2020-01-28 05:26] LABS: Absolute Lymphocytes (CBC) 0.8 K/uL (0.7-4.9); Basophils % 0.2 % (0-1.3); Lymphocytes % 5.6 % (15.3-44.8); MPV 10.2 fL (7.6-11.3); RBC Red Blood Cell Count 2.75 M/uL (3.86-4.86)
[2020-01-28 05:34] LABS: Magnesium 1.9 mg/dL (1.8-2.4); Phosphorus 1.3 mg/dL (2.5-4.9); Potassium 3.6 mmol/L (3.5-5.1)
[2020-01-28] MEDS: LEVOTHYROXINE SOD 0.025 MG TAB PO SCH (05:44)
[2020-01-28] MEDS: HYDROCODONE/APAP 7.5/325 MG TAB PO PRN ×4 (05:44→23:08)
[2020-01-28] MEDS: FAMOTIDINE 20 MG TAB PO SCH ×2 (08:14→19:55)
[2020-01-28] MEDS ORDERED: NA CHLORIDE 0.9% 1,000 ML IV ONE (10:44)
--- NOTE | 2020-01-28 10:44 | P.PN ---
Subjective Date of Service: 01/28/20 (Hospitalist) Chief Complaint: Status post cholecystectomy Patient is doing much better she had a breakfast this morning still has some abdominal discomfort mild fever blood pressure is slightly low Review of Systems Gastrointestinal: Abdominal Pain Physical Examination - Vital Signs Temperature: 96.5 F Blood Pressure: 83/39 Pulse: 97 Respirations: 24 Pulse Ox (%): 99 - Physical Exam General: Alert, In no apparent distress, Oriented x3 Respiratory: Clear to auscultation bilaterally Cardiovascular: No edema, Normal pulses, Regular rate/rhythm Gastrointestinal: Tenderness (Abdominal tenderness from the recent surgery) Assessment & Plan - Problems (Diagnosis) (1) Acute cholecystitis Current Visit: Yes Status: Acute Plan: Patient is status post cholecystectomy admitted with gangrenous cholecystitis doing much better white count is declining patient tolerated breakfast on antibiotics blood pressure is still low will need some more fluid patient is still hypotensive will bolus her again blood cultures so far negative patient is on Zosyn and Flagyl hemoglobin is 8.3
--- NOTE | 2020-01-28 12:56 | PN ---
Date of Progress Note: 01/28/2020 Subjective: Patient is awake, alert. No complaint. Tolerating liquids. Objective: Vital Signs: Significant for low blood pressure. Heart rate is down. She was given a f luid bolus and then it is better now. Her DOLLY drain only put out 40 cc of serosanguineous fluid. Abdomen: Benign. Dressing is clean, dry, and intact. Laboratory Data: H and H are 8.3 and 24. Assessment: Status post open cholecystectomy and sepsis. Recommendations: Continue with fluid resuscitation. Ordered IV antibiotics. Ambulation with physic al therapy. Incentive spirometry. Continue ICU monitoring for another day. Probable transfer to [facility] tomorrow. Patient is clinically stable, slowly improving. /MODL Voice ID: [id number] Report ID: [id number]
[2020-01-29] MEDS: METRONIDAZOLE 500mg IVPB 500 MG/100 ML BAG IV SCH ×3 (01:06→17:49)
[2020-01-29] MEDS: Ringers Lactate 1,000 ML with POTASSIUM CL 40 MEQ IV SCH ×10 (02:48→22:03)
[2020-01-29] MEDS: HYDROMORPHONE HCL 1 MG/ML INJ IV PRN ×3 (03:26→19:30)
[2020-01-29 05:50] LABS: ALT/SGPT 29 U/L (12-78); AST/SGOT 23 U/L (15-37); Albumin 1.6 g/dL (3.4-5.0); Alkaline Phosphatase 51 U/L (45-117); BUN Blood Urea Nitrogen 11 mg/dL (7-18); Bicarbonate 28 mmol/L (21-32); Bilirubin Total 0.5 mg/dL (0.2-1.0); Glucose Level 111 mg/dL (74-106); Potassium 3.9 mmol/L (3.5-5.1); Protein, Total 6.1 g/dL (6.4-8.2); Sodium Level 141 mmol/L (136-145)
[2020-01-29] MEDS: LEVOTHYROXINE SOD 0.025 MG TAB PO SCH (05:50)
[2020-01-29] MEDS: PIPER/TAZO/NS 3.375gm 3.375 GM/100 ML BAG IVPB SCH ×3 (05:50→17:48)
[2020-01-29 05:54] LABS: Hematocrit 23.3 % (36.0-45.0); MPV 10.1 fL (7.6-11.3); RBC Red Blood Cell Count 2.48 M/uL (3.86-4.86)
[2020-01-29 06:38] VITALS: BMI 47.1
[2020-01-29 07:43] LABS: Anisocytosis 1+; Blood Morphology Comment NOTED (NOT SEEN); Platelet Estimate ADEQ; Target Cells 1+; Urine White Blood Cell Casts OK
[2020-01-29] MEDS: FAMOTIDINE 20 MG TAB PO SCH ×2 (09:24→21:00)
--- NOTE | 2020-01-29 10:49 | P.PN ---
Subjective Date of Service: 01/29/20 Chief Complaint: Status post cholecystectomy Subjective: Tolerating diet, Ambulating, Improving This is a 64-year-old female status post open cholecystectomy. Was found to have gangrenous gallbladder and sepsis. Patient has been in ICU for the last couple of days. Recovering well. Pain was moderate last night and was requiring more pain medicine but doing better this morning. Still has not had a bowel movement or passing gas. Able to eat and drink. No nausea no bloating or distention. Feeling well otherwise. Does not complain of any chest tightness or shortness of breath. Hemoglobin was 7.8 this morning. Is due to recheck at noon today. DOLLY drain with 10 mL of serosanguineous fluid. I&O's stable. No acute changes from yesterday. <Juan Daniel Oswald - Last Filed: 01/29/20 10:44> Date of Service: 02/12/20 <Darryn Richardson - Last Filed: 02/12/20 15:36> Review of Systems General: Unremarkable Eyes: Unremarkable ENT: Unremarkable Respiratory: Unremarkable Cardiovascular: Unremarkable Gastrointestinal: Abdominal Pain Musculoskeletal: Unremarkable Integumentary: Unremarkable Neurological: Unremarkable Lymphatics: Unremarkable <Juan Daniel Oswald - Last Filed: 01/29/20 10:44> Physical Examination - Vital Signs Temperature: 98.9 F Blood Pressure: 106/71 Pulse: 113 Respirations: 39 Pulse Ox (%): 96 - Physical Exam General: Alert, In no apparent distress, Oriented x3, Cooperative HEENT: Normocephalic, PERRLA, Mucous membr. moist/pink Neck: Supple, 2+ carotid pulse no bruit, JVD not distended Respiratory: Clear to auscultation bilaterally, Normal air movement Cardiovascular: No edema, Normal S1 S2, No gallops, No rubs, No murmurs, Irregular heart rate/rhythm (sinus tachycardia ) Capillary refill: <2 Seconds Gastrointestinal: Normal bowel sounds, Soft and benign, Non-distended, Tenderness (upper abdomen ) Musculoskeletal: No clubbing, No swelling, No contractures, No erythema, No tenderness, No warmth Integumentary: No rashes, No breakdown, No significant lesion, No tenderness/ swelling, No erythema, No warmth, No cyanosis Neurological: Normal speech, Normal strength at 5/5 x4 extr, Normal tone, Sensation intact, Cranial nerves 3-12 intact, Normal reflexes 2+, Normal affect - Studies Medications List Reviewed: Yes <Juan Daniel Oswald - Last Filed: 01/29/20 10:44> - Studies Microbiology Data (last 24 hrs): 01/26/20 19:07 Clean Catch Urine [place] Count - Final >100,000 CFU/ML. 01/26/20 19:07 Clean Catch Urine - Final Streptococcus Agalactiae Grp B <Darryn Richardson - Last Filed: 02/12/20 15:36> Assessment & Plan - Problems (Diagnosis) (1) Sepsis Status: Acute Qualifiers: Sepsis type: sepsis due to unspecified organism Sepsis acute organ dysfunction status: without acute organ dysfunction Qualified Code(s): A41.9 - Sepsis, unspecified organism (2) Gangrenous cholecystitis Status: Acute (3) Acute cholecystitis Status: Acute Plan: Reviewed case with Dr. Umana. Patient is doing well at this time and is stable enough to be downgraded to telemetry. Barker will be d/c'd as of today. Patient will continue to ambulate. We will continue to monitor I and O along with other vital signs. Patient will continue light hydration via IV along with potassium checks and IV antibiotics. If hemoglobin is stable after this next check Lovenox will be started for DVT prophylaxis. Will continue to monitor over the next day or 2 Discharge Plan: Home Plan to discharge in: Greater than 2 days <Juan Daniel Oswald - Last Filed: 01/29/20 10:44> Physician Review: Patient Assessed, Agree with Above Assessment and Plan <Darryn Richardson - Last Filed: 02/12/20 15:36>
--- NOTE | 2020-01-29 11:54 | PN ---
Date of Progress Note: 01/29/2020 Subjective: Patient is awake, alert, tolerating full liquids. Vitals are significant for a slight t achycardia. Urine output is adequate. She is still on IV fluids. The DOLLY drain is putting out 10 cc the last shift. Laboratory Data: Reviewed. White count is 16.1, H and H are 7.8 and 23.3, not significantly changed from yesterday. She has gotten a lot of IV fluids. Probably delusional in nature. Chemistry revie wed. Abdomen soft, nondistended, and nontender. Dressing clean dry and intact. DOLLY drainage is serosangui neous fluid. Assessment: Open cholecystectomy. Plan: We will discontinue the Barker. Continue the DOLLY drain. Continue IV antibiotics. Continue the IV fluids as she is still a little tachycardic and the patient can be transferred to the floor. Enc ourage ambulation, incentive spirometry. DVT prophylaxis. Hopefully discharge in 24-48 hours. /MODL Voice ID: [id number] Report ID: [id number]
[2020-01-29 12:39] LABS: Hematocrit 25.1 % (36.0-45.0)
[2020-01-29] MEDS: HYDROCODONE/APAP 7.5/325 MG TAB PO PRN ×2 (13:18→23:14)
[2020-01-29] MEDS: ENOXAPARIN 40 MG/0.4 ML SQ SCH (21:00)
[2020-01-30] MEDS: METRONIDAZOLE 500mg IVPB 500 MG/100 ML BAG IV SCH ×3 (00:22→16:19)
[2020-01-30] MEDS: PIPER/TAZO/NS 3.375gm 3.375 GM/100 ML BAG IVPB SCH ×3 (01:00→17:13)
[2020-01-30] MEDS: HYDROMORPHONE HCL 1 MG/ML INJ IV PRN ×3 (04:11→18:14)
[2020-01-30] MEDS: LEVOTHYROXINE SOD 0.025 MG TAB PO SCH (05:12)
[2020-01-30 05:29] LABS: Hematocrit 23.1 % (36.0-45.0); MPV 9.7 fL (7.6-11.3); RBC Red Blood Cell Count 2.45 M/uL (3.86-4.86)
[2020-01-30 05:46] LABS: ALT/SGPT 22 U/L (12-78); AST/SGOT 16 U/L (15-37); Albumin 1.6 g/dL (3.4-5.0); Alkaline Phosphatase 58 U/L (45-117); BUN Blood Urea Nitrogen 9 mg/dL (7-18); Bicarbonate 28 mmol/L (21-32); Bilirubin Total 0.4 mg/dL (0.2-1.0); Glucose Level 123 mg/dL (74-106); Potassium 3.9 mmol/L (3.5-5.1); Protein, Total 6.2 g/dL (6.4-8.2); Sodium Level 143 mmol/L (136-145)
[2020-01-30] MEDS: Ringers Lactate 1,000 ML with POTASSIUM CL 40 MEQ IV SCH ×2 (05:57)
[2020-01-30] MEDS ORDERED: ENOXAPARIN 40 MG/0.4 ML SQ SCH (09:00)
[2020-01-30] MEDS: ENOXAPARIN 40 MG/0.4 ML SQ SCH (09:00)
[2020-01-30] MEDS: FAMOTIDINE 20 MG TAB PO SCH ×2 (09:00→20:25)
[2020-01-30 11:37] LABS: Absolute Lymphocytes (CBC) 0.9 K/uL (0.7-4.9); Basophils % 0.2 % (0-1.3); Hematocrit 24.5 % (36.0-45.0); Lymphocytes % 5.7 % (15.3-44.8); MPV 9.6 fL (7.6-11.3)
[2020-01-30 12:18] LABS: Ferritin 398.5 ng/mL (8-388); Folic Acid, (Folate) 5.7 ng/mL (3.1-17.5)
--- NOTE | 2020-01-30 12:41 | P.PN ---
Subjective Date of Service: 01/30/20 Chief Complaint: Status post cholecystectomy Subjective: No new changes, Tolerating diet, Improving Physical Examination - Vital Signs Temperature: 97.1 F Blood Pressure: 127/71 Pulse: 109 Respirations: 14 Pulse Ox (%): 100 - Physical Exam General: Alert, Oriented x3, Obese HEENT: Atraumatic, Normocephalic Neck: Supple, 2+ carotid pulse no bruit Respiratory: Clear to auscultation bilaterally, Normal air movement Cardiovascular: No edema, Normal pulses, Regular rate/rhythm Gastrointestinal: Normal bowel sounds, Soft and benign, Other (abd dressing ) Neurological: Normal speech, Normal strength at 5/5 x4 extr - Studies Microbiology Data (last 24 hrs): 01/26/20 19:07 Clean Catch Urine [place] Count - Final >100,000 CFU/ML. 01/26/20 19:07 Clean Catch Urine - Final Streptococcus Agalactiae Grp B Medications List Reviewed: Yes Assessment & Plan Physician Review: Patient Assessed, Agree with Above Assessment and Plan Physician Review Additional Text: Acute ganrenous cholecystitis - s/p lap converted to open cholecystectomy with fossa washout -on abx now -tolerating po well - follow plan for dc soon - with strep agalacticae , will need levaquin for 10-14 days # HTN -controlled # ANEMIA -STABLE AT 8.0 , FOLLOW iron profile possible dc in am
[2020-01-30 13:48] LABS: Ferritin 407.7 ng/mL (8-388)
[2020-01-30] MEDS: CODEINE 30MG/APAP 300MG TAB PO PRN ×2 (15:17→20:24)
--- NOTE | 2020-01-30 15:22 | PN ---
Date of Progress Note: 01/30/2020 Subjective: She is awake, alert, doing better, tolerating a regular diet. DOLLY put out 5 cc in last s hift. H and H are stable. White count is still elevated. Objective: Vitals: Stable. Afebrile. Abdomen: Benign. Assessment: Status post open cholecystectomy. Plan: Continue IV antibiotics. Encourage ambulation and incentive spirometry. DVT prophylaxis. IV antibiotics. Hopefully discharged on oral antibiotics tomorrow. Patient is clinically improving. /MODL Voice ID: [id number] Report ID: [id number]
[2020-01-31] MEDS: METRONIDAZOLE 500mg IVPB 500 MG/100 ML BAG IV SCH ×3 (00:29→16:46)
[2020-01-31] MEDS: PIPER/TAZO/NS 3.375gm 3.375 GM/100 ML BAG IVPB SCH ×3 (00:29→16:45)
[2020-01-31] MEDS: LEVOTHYROXINE SOD 0.025 MG TAB PO SCH (06:04)
[2020-01-31 06:29] LABS: Absolute Lymphocytes (CBC) 1.1 K/uL (0.7-4.9); Basophils % 0.3 % (0-1.3); Hematocrit 22.3 % (36.0-45.0); Lymphocytes % 7.8 % (15.3-44.8); MPV 9.8 fL (7.6-11.3); RBC Red Blood Cell Count 2.37 M/uL (3.86-4.86)
[2020-01-31 08:53] VITALS: O2SAT 97
[2020-01-31 08:55] LABS: Anisocytosis 1+; Blood Morphology Comment NOTED (NOT SEEN); Platelet Estimate ADEQ; Target Cells 1+; Urine White Blood Cell Casts OK
[2020-01-31] MEDS: FAMOTIDINE 20 MG TAB PO SCH (08:55)
[2020-01-31] MEDS: ENOXAPARIN 40 MG/0.4 ML SQ SCH (08:55)
--- NOTE | 2020-01-31 10:07 | PN ---
Date of Progress Note: 01/31/2020 Subjective: Patient is awake, alert, no complaint. Tolerating diet, ambulating, pain controlled, p. o. pain medication. Objective: Vital Signs: Stable. Afebrile. Abdomen: Benign. Laboratory Data: Laboratory data reviewed. White count is coming down, still slightly elevated. H and H are stable. Assessment: Status post open cholecystectomy and urinary tract infection. Recommendations: Patient cleared from discharge on Levaquin to follow up in my office 1 to 2 weeks. Discharge instructions given. Case discussed with Dr. Locke. MELY/ESTRELLA Voice ID: [id number] Report ID: [id number]
[2020-01-31] MEDS ORDERED: NA CHLORIDE 0.9% 250 ML ONE ×2 (10:17→15:29)
--- NOTE | 2020-01-31 12:05 | P.DS ---
Admission Date: 01/27/20 Discharge Date: 01/31/20 Disposition: ROUTINE DISCHARGE Discharge Condition: GOOD Reason for Admission: Status post cholecystectomy Brief History of Present Illness: Patient with history of hypothyroidism, obesity admitted for fever a right upper quadrant and epigastric pain Hospital Course: Patient was admitted, abdominal ultrasound shows evidence of acute gangrenous cholecystitis. She was evaluated by surgery and had open cholecystectomy. Procedure was uncomplicated. She was started on antibiotics for leukocytosis. She was noted to have post surgery anemia with hemoglobin down to 7.4. As well as hypophosphatemia, hypomagnesemia an iron deficiency. She has been given 2 units PRBC. She was weaned off O2. She will be discharged home today to complete antibiotics course. She will follow up with surgery Dr. Bello in 1 week. Vital Signs/Physical Exam: Temp Pulse Resp BP Pulse Ox 98.0 F 100 H 19 104/66 97 01/31/20 08:00 01/31/20 08:00 01/31/20 08:00 01/31/20 08:00 01/31/20 08:00 General: In no apparent distress, Oriented x3, Obese HEENT: Atraumatic, Normocephalic Neck: Supple, 2+ carotid pulse no bruit, JVD not distended Respiratory: Clear to auscultation bilaterally, Normal air movement Cardiovascular: Normal pulses, Regular rate/rhythm, Normal S1 S2 Gastrointestinal: Normal bowel sounds, Soft and benign, Non-distended Musculoskeletal: No clubbing, Swelling Integumentary: No rashes, No breakdown Neurological: Normal strength at 5/5 x4 extr Laboratory Data at Discharge: WBC 14.2 K/uL (4.3-10.9) H 01/31/20 05:53 Hgb 7.4 g/dL (12.0-15.0) L* 01/31/20 05:53 Hct 22.3 % (36.0-45.0) L 01/31/20 05:53 Plt Count 306 K/uL (152-406) 01/31/20 05:53 PT 16.1 SECONDS (9.5-12.5) H 01/26/20 17:35 INR 1.38 01/26/20 17:35 APTT 28.1 SECONDS (24.3-36.9) 01/26/20 17:35 Sodium 143 mmol/L (136-145) 01/30/20 05:06 Potassium 3.9 mmol/L (3.5-5.1) 01/30/20 05:06 BUN 9 mg/dL (7-18) 01/30/20 05:06 Creatinine 0.57 mg/dL (0.55-1.3) 01/30/20 05:06 Glucose 123 mg/dL (74-106) H 01/30/20 05:06 Phosphorus 1.3 mg/dL (2.5-4.9) L 01/28/20 05:00 Magnesium 1.9 mg/dL (1.8-2.4) 01/28/20 05:00 Total Bilirubin 0.4 mg/dL (0.2-1.0) 01/30/20 05:06 AST 16 U/L (15-37) 01/30/20 05:06 ALT 22 U/L (12-78) 01/30/20 05:06 Alkaline Phosphatase 58 U/L (45-117) 01/30/20 05:06 Amylase 15 U/L (25-115) L 01/26/20 17:35 Lipase 37 U/L (73-393) L 01/26/20 17:35 Home Medications: Chlorthalidone 25 mg PO DAILY PRN 01/26/20 Levothyroxine Sodium 25 mcg PO DAILY 01/26/20 Levofloxacin [Levaquin] 500 mg PO DAILY #10 tablet 01/31/20 New Medications: Levofloxacin [Levaquin] 500 mg PO DAILY #10 tablet Patient Discharge Instructions: may shower in am. keep wound clean and dry. abdominal binder Diet: AHA Activity: No lifting more than 10 lbs Followup: Vickey Umana MD [ACTIVE - CAN ADMIT] - 1-2 Weeks
[2020-01-31] MEDS ORDERED: FUROSEMIDE 40 MG/4 ML VIAL IV ONE (12:37)
[2020-01-31 16:55] VITALS: BP 111/81; TEMP 98.9
== END 2020-01-31 19:17 | disposition home or self-care (01) | DRG 414 ==
LOC: ER 16:58 → ERHOLD 21:19 → 4TH 22:20 → OBSVTOIN 01-27 09:25 → 3RD-ICU 01-27 13:58 → 4TH 01-29 18:59
PROVIDERS: ADMIT Internal Medicine; ATTEND Internal Medicine
PROC: 0FJ44ZZ Inspection of Gallbladder, Percutaneous Endoscopic Approach (ICD-10-PCS; 2020-01-27)
PROC: 0FT40ZZ Resection of Gallbladder, Open Approach (ICD-10-PCS; principal; 2020-01-27 11:00)
PROC: 30233N1 Transfusion of Nonautologous Red Blood Cells into Peripheral Vein, Percutaneous Approach (ICD-10-PCS; 2020-01-31)
PROC: 30233N1 Transfusion of Nonautologous Red Blood Cells into Peripheral Vein, Percutaneous Approach (ICD-10-PCS; 2020-01-31)
DX: K80.00 Calculus of gallbladder with acute cholecystitis without obstruction (principal); A41.9 Sepsis, unspecified organism; N39.0 Urinary tract infection, site not specified; K82.A1 Gangrene of gallbladder in cholecystitis; E03.9 Hypothyroidism, unspecified; E83.42 Hypomagnesemia; D50.9 Iron deficiency anemia, unspecified; B95.1 Streptococcus, group B, as the cause of diseases classified elsewhere; E83.39 Other disorders of phosphorus metabolism; D64.9 Anemia, unspecified
CPT/HCPCS: 36415; 36430; 71045; 71260; 74177; 76705; 78226; 80048; 80053; 80076; 81003; 81015; 82150; 82550; 82553; 82607; 82728; 82746; 82947; 83540; 83605; 83690; 83735; 84100; 84145; 84443; 84466; 84484; 85014; 85018; 85025; 85027; 85610; 85730; 86850; 86900; 86901; 87040; 87077; 87086; 87088; 87186; 88304; 88312; 93005; 96365; 96366; 96375; 97116; 97530; 99285; A9537; G0378; J0330; J1170; J1644; J1650; J1940; J2250; J2270; J2370; J2405; J2543; J2704; J2710; J3010; J7030; J7040; J7120; P9016; Q9967